=== PATIENT | female | born 1945 | race Caucasian/White ===

== ENCOUNTER 2019-04-15 09:30 | Inpatient (IN) ==
--- NOTE | 2019-03-24 09:19 | PAT Medication Instructions ---
Medication Instructions Date of Service March 24, 2019 Home Medications citalopram 20 mg PO HS lisinopril-hydrochlorothiazide 1 tab PO QAM lorazepam 0.5 mg PO DAILY PRN pantoprazole 40 mg PO QAM DO NOT take the morning of surgery lisinopril-hydrochlorothiazide 1 tab PO QAM Take morning of surgery With a small sip of water, OTHERWISE NOTHING TO EAT OR DRINK AFTER MIDNIGHT: lorazepam 0.5 mg PO DAILY PRN (if needed) pantoprazole 40 mg PO QAM Take evening before surgery citalopram 20 mg PO HS lorazepam 0.5 mg PO DAILY PRN (if needed) Other Notes If you have any questions please call us at [phone] or [phone] or [phone] or [phone]
--- NOTE | 2019-03-24 09:46 | Anesthesiology Consultation ---
Date of Service March 24, 2019 Assessment & Plan (1) Encounter for pre-operative examination: S/P CTR with nerve transposition 01/15/19 = LMA #4, no complications. Chart Review Chart Review: Acceptable Risk for Surgery and Patient seen in Pre Admission Testing Teaching & Discussion Instructed NPO after midnight before surgery, except medications with 15 cc of water. Medication instructions provided according to the PAT guidelines. History Surgery Operation Date: 04/15/19 10:40 Proposed Procedures p Right Total Knee Arthroplasty - Dany Melendez MD Height/Weight Height: 5 ft 1 in Weight: 68.4 kg Allergies Allergy/AdvReac Type Severity Reaction Status Date / Time No Known Allergies Allergy Verified 03/17/19 08:53 Medications Home Medications Medication Instructions Recorded Confirmed Last Taken citalopram 20 mg PO HS 01/10/19 03/17/19 01/14/19 lisinopril-hydrochlorothiazide 1 tab PO QAM 01/10/19 03/17/19 01/14/19 lorazepam 0.5 mg PO DAILY PRN 01/10/19 03/17/19 01/14/19 pantoprazole 40 mg PO QAM 01/10/19 03/17/19 01/14/19 Past Medical History Medical History Anxiety Cardiac murmur I/ on exam, pt asymptomatic Hearing deficit History of GI bleed CAUSED BY CHEMO. PT IS FAIRLY CERTAIN SHE HAD A BLOOD TRANSFUSION. Hx of breast cancer 2013 - HAD MASTECTOMY - CHEMO Hypertension Osteoarthritis Exercise / Class Metabolic Activity III < 4 Walking/Shop/Light housework (Limited by knee pain, "legs give out before my breath gives out," uses walker, no stairs, no SOB or CP with ambulation) Past Family History Family History Father Family history of diabetes mellitus Grandfather (Paternal) Family history of diabetes mellitus Past Surgical History Surgical History History of bilateral tubal ligation History of carpal tunnel surgery of right wrist History of section History of colonoscopy History of esophagogastroduodenoscopy (EGD) History of mastectomy LEFT History of tooth extraction History of vascular access device A-PORT INSERTION/REMOVAL Past Anesthesia History No Hx of Anesthesia Complications and No Family Hx of Anesthesia Complications History of PONV No Hx of PONV and No Hx of Motion Sickness Social History Smoking Status: Former smoker tobacco type: cigarettes Do You Dip or Chew Tobacco: No Smoking End Date: 35 YR AGO Hx Alcohol Use: Yes Alcohol type: hard liquor alcohol intake frequency: 0-2 drinks per day ("one big drink per day") Hx Substance Use: No substance use type: does not use Review of Systems Pt denies any recent chest pain, shortness of breath, palpitations, cough, fever or URI. +mild sinus congestion Physical Exam Vital Signs BP: 135/68 P: 74bpm SPO2: 94% RA T: 98.4 F R: 14 ENMT Mouth: + dental bridge (VERY LOOSE), + poor dentition and + loose teeth (UPPER R BRIDGE VERY LOOSE) Thyromental Distance: > or= 3.5 Finger Breadths (3.5) Mallampati Class: II Neck normal visual inspection; neck extension not limited Respiratory normal respiratory effort Auscultation: lungs clear to auscultation bilaterally Cardiovascular Rate/Rhythm: regular rate and regular rhythm Heart Sounds: + murmur (I/ systolic loudest at RSB) Vessels: no carotid bruit Extremities: no edema Testing Laboratory Results 03/24/19 10:00 03/24/19 10:08 PT 10.1 Seconds (9.0-12.0) 03/24/19 10:00 INR 1.0 (0.9-1.1) 03/24/19 10:00 APTT 31.3 Seconds (21.0-31.0) H 03/24/19 10:00 Blood Type O Positive 03/24/19 10:00 Antibody Screen NEGATIVE 03/24/19 10:00 Electrocardiogram Date: 01/09/19 Findings: + NSR @ (74) Possible anterior infarct, age undetermined. Nonspecific ST abnormality. *possible anterior infarct also noted on 2013 EKG from [facility], scanned to chart. Chest X-Ray Date: 03/24/19 Findings: + NAD
--- NOTE | 2019-03-24 10:34 | XRay Report ---
XR chest Pre-admission PA/Lat CLINICAL HISTORY: pat preoperative evaluation COMPARISON STUDY: No previous studies for comparison. FINDINGS: The bones soft tissues and hemidiaphragms are normal. The cardiomediastinal silhouette is n ormal. The lungs are clear. The pulmonary vasculature is normal. IMPRESSION: Negative chest. The above report was generated using voice recognition software. It may contain grammatical, syntax or spelling errors. Electronically signed by: Francis Parrish M.D. 03/24/2019 10:33 AM
[2019-03-24 10:52] LABS: Basophils # (auto) 0.03 K/uL (0-0.2); Basophils % (auto) 0.6 %; Eosinophils # (auto) 0.26 K/uL (0-0.5); Hematocrit (blood only) 36.8 % (37-47); Hemoglobin 12.1 g/dL (12.0-16.0); Immature Granulocytes # (auto) 0.02 K/uL (0.00-0.02); Immature Granulocytes % (auto) 0.4 %; Lymphocytes # (auto) 0.95 K/uL (1.2-3.4); Lymphocytes % (auto) 18.2 %; Mean Corpuscular Hemoglobin 30.9 pg (25-34); Mean Corpuscular Hgb Conc 32.9 g/dL (32-36); Mean Corpuscular Volume 93.9 fL (80-100); Mean Platelet Volume 9.9 fL (7.4-10.4); Monocytes % (auto) 13.4 %; Neutrophils # (auto) 3.25 K/uL (1.4-6.5); Neutrophils % (auto) 62.4 %; Platelet Count 280 K/uL (130-400); RDW Coefficient of Variation 14.8 % (11.5-14.5); Red Blood Count 3.92 M/uL (4.2-5.4); White Blood Count 5.21 K/uL (4.8-10.8)
[2019-03-24 10:56] LABS: BUN Creatinine Ratio 20.7 (10-20); Calcium 9.1 mg/dl (8.5-10.1); Creatinine Clr Calc Pharmacy 41.1 ml/min; Est GFR (African American) 61.2; Est GFR (Non-African American) 52.8; Potassium 4.4 mmol/L (3.5-5.1)
[2019-03-24 10:58] LABS: Partial Thromboplastin Ratio 1.2; Partial Thromboplastin Time 31.3 Seconds (21.0-31.0); Prothrombin Time 10.1 Seconds (9.0-12.0)
--- NOTE | 2019-04-12 10:44 | History and Physical Report ---
DATE OF ADMISSION: 04/15/2019 CHIEF COMPLAINT: Right knee pain. HISTORY OF PRESENT ILLNESS: The patient is a 74-year-old white female who presents for surgical treatment of her right knee. She has a long history of bilateral knee pain and discomfort, describes it has gotten worse over time. She has been through extensive conservative treatment. She has resorted to using a walker to get around. Both knees are pretty much about the same. The injections have not helped much recently. She now would like to proceed with knee replacement. PAST MEDICAL HISTORY: 1. Hypertension. 2. Arthritis. 3. Breast cancer. PAST SURGICAL HISTORY: 1. . 2. Tubal ligation. 3. Right carpal tunnel release and ulnar nerve transposition done on 01/09/2019. ALLERGIES: None. CURRENT MEDICINES: 1. Citalopram 20 mg. 2. Lisinopril 20 mg a day. 3. Protonix 40 mg a day. 4. Ativan p.r.n. 5. Tylenol. 6. Aleve. 7. Tylenol with Codeine. SOCIAL HISTORY: A 74-year-old female patient from [place]. She is . Three drinks per day. FAMILY HISTORY: Noncontributory. REVIEW OF HISTORY: Negative for diabetes, neurologic problem, vascular problems or other bleeding disorders. Denies any chest pain or shortness of breath. No history of DVT or PE. PHYSICAL EXAMINATION: GENERAL: Reveals a healthy, pleasant middle-aged female. Looks to be in pretty good health. HEENT: Benign. NECK: Supple, no lymphadenopathy. LUNGS: Clear to auscultation. HEART: Regular rate and rhythm. ABDOMEN: Soft, nontender, nondistended. EXTREMITIES: Grossly neurovascularly intact except as follows: Examination of the right knee reveals the patient uses a walker to ambulate. She has got varus alignment to her knee. She is tender over the medial joint line. Small knee effusion. Range of motion is 5-120. No instability. No pain with hip motion. X-RAYS: X-ray of the right knee reveals advanced right knee DJD. She has got complete loss of medial joint space. She has got subchondral sclerosis. She has got osteophytes particularly of the medial femoral condyle and medial tibial plateau. She has similar findings on her left side. ASSESSMENT: A 74-year-old white female status post relatively recent upper extremity surgery with bilateral knee pain and degenerative joint disease. She now would like to proceed with right knee replacement. PLAN: We will take her to the operating room and do a right total knee replacement. The risks and benefits of this procedure were explained to the patient including but not limited to DVT, PE, , infection, neurological injury, vascular injury, bleeding problem, pain, limited range of motion, stiffness, failure to relieve symptoms, incomplete relief of symptoms, need for further surgery in the future, fracture, leg length inequality, nerve palsy, etc. The patient understands and desires to proceed. Informed consent was obtained. We did talk about holding her lisinopril on the morning of surgery. She is planning to be discharged home using [facility] home health program.
[~2019-04-15 09:30] MED LIST: ACETAMINOPHEN 500 MG TAB PO SCH; BUPIVACAINE 0.5 % 5 MG/1 ML PF 10ML VIAL ONE; BUPIVACAINE LIPOSOME/PF 266 MG, BUPIVACAINE/EPINEPHRINE 50 ML, SODIUM CHLORIDE 0.9% 30 ... INFIL SCH; CEFAZOLIN 2000MG 2,000 MG/15 ML SYR IV SCH; FAMOTIDINE 20 MG TAB PO SCH; GABAPENTIN 300 MG CAP PO SCH; LR 500ML BOLUS, THEN 15ML/HR IV SCH; LR 60ML/HR IV SCH; METOCLOPRAMIDE HCL 10 MG TABLET PO SCH; ROPIVACAINE 0.5% 5 MG/ML 30 ML VIAL ONE; TRANEXAMIC ACID 1,000 MG **IV Intra-op IV SCH
[2019-04-15] MEDS ORDERED: MIDAZOLAM HCL 1 MG/ML 2ML VIAL ONE (10:26)
[2019-04-15] MEDS ORDERED: fentaNYL citrate 100 MCG/2 ML VIAL ONE (10:26)
--- NOTE | 2019-04-15 10:54 | History & Physical Bridge Note ---
Date of Service April 15, 2019 History & Physical Bridge Note I have examined the patient, reviewed the History & Physical and in the interval since the performance of the History & Physical I have noted the following changes of clinical significance: no changes noted
[2019-04-15] MEDS ORDERED: SODIUM CHLORIDE 0.9% PF 50 ML VIAL ONE (11:20)
[2019-04-15] MEDS ORDERED: BUPIVACAINE LIPOSOME 1.3% 266 MG/20 ML VIAL ONE (11:20)
[2019-04-15] MEDS ORDERED: BACITRACIN INJ 50,000 UNIT VIAL ONE (11:20)
[2019-04-15] MEDS ORDERED: BUPIVACAINE 0.25% 30 ML VIAL ONE (11:23)
[2019-04-15] MEDS ORDERED: EPINEPHrine INJ 1 MG/ML AMP ONE (11:23)
[2019-04-15] MEDS ORDERED: ePHEDrine sulfate 50 MG/ML AMP IV PRN (11:53)
[2019-04-15] MEDS ORDERED: ATROPINE SULFATE 0.1 MG/ML 10ML SYR IV PRN (11:53)
[2019-04-15] MEDS ORDERED: PROPOFOL IV EMULSION 10 MG/ML 20 ML VIAL IV ONE (12:59)
[2019-04-15] MEDS ORDERED: KETAMINE HCL INJ 50 MG/ML 10 ML VIAL ONE (13:06)
[2019-04-15] MEDS ORDERED: BUPIVACAINE 0.25% 30 ML VIAL INFIL ONE (13:20)
[2019-04-15] MEDS ORDERED: EPINEPHrine INJ 1 MG/ML AMP INJ STA (13:22)
--- NOTE | 2019-04-15 14:13 | Post Operative Brief Note ---
PG Immediate Post Op with CF Date of Surgery April 15, 2019 Pre & Post Diagnosis Operation Date: 04/15/19 12:30 Pre-Op Diagnosis: Right Knee Advanced Degenerative Joint Disease Post-Op Diagnosis: Right Knee Advanced Degenerative Joint Disease Procedure Operation Date: 04/15/19 12:30 Actual Procedures p Right Total Knee Arthroplasty(Right) - Dany Melendez MD Surgeon Dany Melendez MD Gasoline Attendant Noa, PAC Estimated Blood Loss 50 Findings Consistent with Post-Op Diagnosis Fluids 1400 cc Specimens Specimen Description: A. Right Knee Bone and Tissue Drains Thibodeaux Catheter (A 16 [place] thibodeaux catheter was inserted by Denisha Ramirez RN, without difficulty, clear yellow urine obtained, output to be monitored by Anesthesia.) Anesthesia Type Spinal MAC Complications none Disposition Accompanied Patient To Recovery: No Disposition: Recovery Room
--- NOTE | 2019-04-15 14:48 | XRay Report ---
RIGHT KNEE 2 VIEWS History: Right total knee arthroplasty. Degenerative arthritis. Postop. FINDINGS: The patient is status post a right total knee arthroplasty. The hardware is intact. No frac ture or dislocation. Skin monty are in place. IMPRESSION: Right total knee arthroplasty. No evidence for hardware complication. Electronically signed by: Bhaskar Sanchez M.D. 04/15/2019 2:46 PM
--- NOTE | 2019-04-15 15:14 | Anesthesiology Progress Note ---
Date of Service April 15, 2019 Anesthesia Post Procedure Vital Signs Vital Signs: Temp Pulse Pulse Resp BP Pulse Ox 04/15/19 15:05 86 14 103/58 L 97 04/15/19 14:55 36.9 C 87 16 127/64 98 04/15/19 14:45 95 H 16 124/76 94 04/15/19 14:35 89 16 116/68 99 04/15/19 14:25 89 16 99/59 L 100 04/15/19 14:15 36.5 C 90 14 116/65 98 04/15/19 10:22 36.9 C 89 20 163/99 H 94 Transfer of Care Handoff Completed per policy Notes Mental Status: alert / awake / arousable and participated in evaluation Patient Amnestic to Procedure: Yes Nausea / Vomiting: adequately controlled Pain: adequately controlled Airway Patency, RR, SpO2: stable & adequate BP & HR: stable & adequate Hydration State: stable & adequate Neuraxial Anesthesia: was administered and sensory block is resolving Anesthetic Complications: no major complications apparent
[2019-04-15] MEDS ORDERED: SODIUM CHLORIDE 0.9% 1000ML 1,000 ML IV SCH (15:37)
[2019-04-15] MEDS ORDERED: METOCLOPRAMIDE HCL INJ 5 MG/ML 2 ML VIAL IV PRN (15:37)
[2019-04-15] MEDS ORDERED: FLUTICASONE PROPIONATE NA SPR 16 GM BTL PRN (15:37)
[2019-04-15] MEDS ORDERED: MAGNESIUM HYDROXIDE SUSP 30 ML UDC PO PRN (15:37)
[2019-04-15] MEDS ORDERED: HYDROmorphone INJ 0.5 MG/0.5 ML SYR IV PRN (15:37)
[2019-04-15] MEDS ORDERED: TRAMADOL HCL 50 MG TABLET PO PRN (15:37)
[2019-04-15] MEDS ORDERED: ALUMINUM/MAGNESIUM SUSP 30 ML UDC PO PRN (15:37)
[2019-04-15] MEDS ORDERED: NALOXONE HCL 0.4 MG/1 ML VIAL/CARP IV PRN (15:37)
[2019-04-15] MEDS ORDERED: ONDANSETRON INJ 2 MG/ML 2 ML VIAL IV PRN (15:37)
[2019-04-15] MEDS ORDERED: BISACODYL 10 MG SUPP PR PRN (15:37)
[2019-04-15] MEDS ORDERED: LORazepam 0.5 MG TAB PO PRN (15:37)
[2019-04-15] MEDS: KETOROLAC TROMETHAMINE 15 MG/ML VIAL IV SCH ×2 (16:22→21:09)
[2019-04-15] MEDS: ASCORBIC ACID 500 MG TAB PO SCH (16:23)
[2019-04-15] MEDS: FERROUS GLUCONATE 324 MG TAB PO SCH (16:23)
[2019-04-15] MEDS: CEFAZOLIN 1000MG 1,000 MG/7.5 ML SYR IV SCH (17:58)
[2019-04-15] MEDS ORDERED: TRANEXAMIC ACID 1,000 MG in 0.9 % SODIUM CHLORIDE 100 ML IV SCH (20:16)
[2019-04-15] MEDS: DOCUSATE SODIUM 100 MG CAP PO SCH (20:37)
[2019-04-15] MEDS: CITALOPRAM 20 MG TAB PO SCH (20:37)
[2019-04-15] MEDS: ASPIRIN 81 MG ECTAB PO SCH (20:37)
[2019-04-15] MEDS: SENNA 8.6 MG TAB PO SCH (20:37)
--- NOTE | 2019-04-15 21:06 | Progress Note ---
DATE: 04/15/2019 SUBJECTIVE: A 74-year-old white female postop from a right knee replacement. She is doing well. Does not have any pain yet. No chest pain or shortness of breath. Not feeling dizzy or lightheaded. OBJECTIVE: VITAL SIGNS: Temperature 36.6. Vital signs stable. GENERAL: Shows a pleasant, middle-aged female. She is sitting up in her bed, looks pretty comfortable. LUNGS: Clear to auscultation. HEART: Has a regular rate and rhythm. ABDOMEN: Soft, nontender, nondistended. EXTREMITIES: Grossly neurovascularly intact except as follows: Examination of the right lower extremity reveals the leg to be well aligned. Dressing is clean, dry and intact. She can dorsiflex and plantarflex her foot appropriately. NEUROLOGIC: She is neurologically intact. X-RAYS: X-ray of the right knee from recovery room is reviewed. It shows right cemented posterior stabilized total knee arthroplasty. Components looked to be in good position. No signs of problems. ASSESSMENT: A 74-year-old white female postoperative from a right knee replacement, doing well. Pain is controlled. She is neurologically intact. PLAN: 1. DVT prophylaxis including thigh-high TEDs, SCDs, and aspirin twice a day. 2. PT/OT. Weight bear as tolerated. Right total knee protocol. 3. Pain control, doing well with current pain regimen. 4. IV antibiotics x24 hours. 5. Disposition: Plan to discharge to home with some home health once adequately recovered and medically stable.
[2019-04-15] MEDS: ACETAMINOPHEN 500 MG TAB PO SCH (21:09)
--- NOTE | 2019-04-15 23:06 | Operative Report ---
DATE OF OPERATION: 04/15/2019 SURGEON: Dany Melendez MD [employer]ARDEN: TAMARA Barber PREOPERATIVE DIAGNOSIS: Right knee degenerative joint disease. POSTOPERATIVE DIAGNOSIS: Right knee degenerative joint disease. PROCEDURE PERFORMED: Right cemented posterior stabilized total knee arthroplasty. COMPLICATIONS: None. ESTIMATED BLOOD LOSS: 50 mL. FLUID REPLACEMENT: 1400 mL crystalloid fluid replacement. TOURNIQUET TIME: 52 minutes at 300 mmHg. ANESTHESIA: Spinal with adductor canal block. DRAINS: None. SPECIMENS: Right knee sent for pathology. OPERATIVE INDICATIONS: The patient is a 74-year-old fairly active female who has had a long history of bilateral knee pain and discomfort, right side a bit worse than the left. She has been through extensive conservative treatment over the years, which became less successful over time. She elected to proceed with total knee arthroplasty. OPERATIVE FINDINGS: Operative findings revealed extensive grade 4 [id number] disease and eburnation of the entire medial femoral condyle and medial tibial plateau. She had varus deformity to her knee and about 10-degree flexion contracture and a large knee joint effusion. She had osteophytes mostly in the medial compartment. OPERATIVE IMPLANTS: Operative implants consisted of: 1. A Biomet Vanguard size 60 right posterior stabilized femoral component. 2. A Biomet size 67 tibial tray. 3. A 12 mm posterior stabilized polyethylene insert. 4. A 28 x 8 all poly patella. OPERATIVE PROCEDURE: The patient was taken to the operating room, identified and placed on the operating table in supine position. All contact areas were appropriately padded. IV antibiotics were provided by the anesthesia team. A spinal anesthetic and adductor canal block had been provided in the holding area. Siddiqui catheter was placed in sterile fashion. A right thigh tourniquet was then placed and the right lower extremity was then prepped and draped in the usual sterile fashion. The right leg was elevated and exsanguinated with an Esmarch and tourniquet was placed at 300 mmHg. An anterior approach to the right knee was then performed through a longitudinal incision centered over the patella. Sharp dissection was carried out through the subcutaneous tissue down to the level of the extensor mechanism. Medial parapatellar arthrotomy incision was made. Some subperiosteal dissection was carried out medially. The fat pad resected from beneath the patellar tendon. The lateral patellofemoral ligament was released. The patella was everted and the knee was flexed. The osteophytes were taken off the distal femur. The ACL and PCL were then released from the distal femur and the tibia subluxated anteriorly. External tibial alignment jig was then placed in the anterior face of the tibia and adjusted 14 mm medially. Proximal tibial cut was made to remove about a millimeter of bone from most deficient aspect of the medial tibial plateau. Some osteophytes were taken off medial and posteromedially. Tibia sized to a size 67. Attention was then drawn to the femur. The distal femur was entered with a sharp drill. Intramedullary guide was placed. Distal femoral cutting block was pinned in place and the distal femoral cut was then made to take an additional 3 mm of bone off the distal femur. This was placed with 5-degree valgus cutting guide. The femur was then sized to a size 60. We did downsize this slightly. The AP cutting block was pinned parallel to the epicondylar axis, which was 5 degrees of external rotation. The anterior cut, anterior chamfer, posterior cut, posterior chamfer cuts were made. Box cutting guide was placed and adjusted slightly lateral and the box cut was made. The knee was flexed. The remnants of the medial and lateral menisci were excised. The osteophytes were taken off the posterior aspect of the femur. A trial femoral component was placed. The tibial tray was pinned in maximum external rotation and drill and stem punch were used to create defect in proximal tibia for the tibial tray. The knee was then trialed and the 12 mm insert fit most appropriately. Attention was then drawn to the patella. The patella was cleaned of all soft tissues. Patella thickness measured 22 mm in thickness, it was cut down to 13. It was sized to a size 28 patella. Lug holes were drilled for a 28 patella. The lateral osteophyte was removed. Patella button was placed. Knee was taken through range of motion, patella tracked nicely with no thumbs test. Attention was then drawn toward placement of permanent components. All trial components were removed. Bone plug was placed in the distal femur to limit blood loss. A double batch of Palacos G cement was mixed. A Biomet Light Up [place]aguard size 60 right posterior stabilized femoral component, size 67 tibial tray, 12 mm posterior stabilized polyethylene insert, 28 x 8 all poly patella then cemented in place. Knee was brought down to full extension until cement hardened. A final cement check was then performed. Pericapsular tissues were injected with a total of 100 mL of combination of 20 mL of Exparel, 30 mL of normal saline, 50 mL of 0.25% Marcaine with epinephrine. The patient did receive 1 gram of tranexamic acid. The tourniquet was then let down for final tourniquet time of 52 minutes. Hemostasis was assured with use of electrocautery. The extensor mechanism was then closed with combination of #1 PDS suture and #1 Vicryl suture in [id number] fashion. Extensor mechanism was checked and found to be intact. Subcutaneous tissue was then closed with #2 Dexon suture in a buried interrupted fashion. Skin was closed with skin monty. Leg was then cleaned and dried and a sterile dressing with Xeroform, 4 x 4, sterile cast padding and Chris bandage were applied. The patient then transferred to the recovery room in stable condition. The patient tolerated the procedure well with no complications. All needle and sponge counts were correct at the end of the operation. I attest to the content of the Intraoperative Record and any orders documented therein. Any exceptions are noted below. JADIELD
[2019-04-16] MEDS: CEFAZOLIN 1000MG 1,000 MG/7.5 ML SYR IV SCH (02:19)
[2019-04-16] MEDS: KETOROLAC TROMETHAMINE 15 MG/ML VIAL IV SCH ×4 (03:45→22:05)
[2019-04-16] MEDS: ACETAMINOPHEN 500 MG TAB PO SCH ×3 (05:54→22:08)
[2019-04-16 06:26] LABS: Hematocrit (blood only) 30.9 % (37-47); Hemoglobin 10.3 g/dL (12.0-16.0); Mean Corpuscular Hemoglobin 30.7 pg (25-34); Mean Corpuscular Hgb Conc 33.3 g/dL (32-36); Mean Platelet Volume 9.5 fL (7.4-10.4); Platelet Count 215 K/uL (130-400); RDW Coefficient of Variation 14.8 % (11.5-14.5); RDW Standard Deviation 49.9 fL (36.4-46.3); Red Blood Count 3.36 M/uL (4.2-5.4)
[2019-04-16 07:04] LABS: BUN Creatinine Ratio 15.4 (10-20); Calcium 8.2 mg/dl (8.5-10.1); Creatinine Clr Calc Pharmacy 42.7 ml/min; Est GFR (African American) 63.4; Est GFR (Non-African American) 54.7; Potassium 4.2 mmol/L (3.5-5.1)
[2019-04-16] MEDS: PANTOprazole 40 MG TAB PO SCH (08:21)
[2019-04-16] MEDS: MULTIVITAMIN TAB PO SCH (08:21)
[2019-04-16] MEDS: LISINOPRIL/HCTZ 20/25MG 1 TAB PO SCH (08:21)
[2019-04-16] MEDS: ASCORBIC ACID 500 MG TAB PO SCH ×2 (08:22→16:04)
[2019-04-16] MEDS: FERROUS GLUCONATE 324 MG TAB PO SCH ×2 (08:22→16:04)
[2019-04-16] MEDS: DOCUSATE SODIUM 100 MG CAP PO SCH ×2 (08:22→20:00)
[2019-04-16] MEDS: ASPIRIN 81 MG ECTAB PO SCH ×2 (08:22→22:08)
--- NOTE | 2019-04-16 08:26 | Anesthesiology Progress Note ---
Date of Service April 16, 2019 Anesthesia Post Procedure Vital Signs Vital Signs: Temp Pulse Pulse Resp BP Pulse Ox 04/16/19 08:20 36.7 C 86 16 156/86 H 93 04/16/19 04:23 36.7 C 88 18 164/91 H 92 04/15/19 23:45 36.6 C 89 18 133/82 92 04/15/19 18:30 36.6 C 94 H 18 123/78 92 04/15/19 17:30 36.6 C 101 H 16 117/71 92 04/15/19 16:28 36.4 C L 89 18 152/89 H 94 04/15/19 15:58 37 C 92 H 18 131/74 90 04/15/19 15:30 36.8 C 92 H 16 123/69 92 04/15/19 15:15 87 14 111/64 97 04/15/19 15:05 86 14 103/58 L 97 04/15/19 14:55 36.9 C 87 16 127/64 98 04/15/19 14:45 95 H 16 124/76 94 04/15/19 14:35 89 16 116/68 99 04/15/19 14:25 89 16 99/59 L 100 04/15/19 14:15 36.5 C 90 14 116/65 98 04/15/19 10:22 36.9 C 89 20 163/99 H 94 Notes Mental Status: alert / awake / arousable and participated in evaluation Patient Amnestic to Procedure: Yes Nausea / Vomiting: adequately controlled Pain: adequately controlled Airway Patency, RR, SpO2: stable & adequate BP & HR: stable & adequate Hydration State: stable & adequate Neuraxial Anesthesia: was administered and sensory block resolved Anesthetic Complications: no major complications apparent and Pt Satisfied with anesthetic care
--- NOTE | 2019-04-16 08:50 | Progress Note ---
DATE: 04/16/2019 SUBJECTIVE: A 74-year-old white female postop day 1 from right knee replacement. She is doing well. Does not report any significant pain. No chest pain or shortness of breath. Not feeling dizzy or lightheaded. OBJECTIVE: VITAL SIGNS: Temperature 36.7. Vital signs stable. GENERAL: Physical examination shows a pleasant elderly female. She is sitting up in her bedside chair and just starting to eat breakfast. EXTREMITIES: Examination of the right leg reveals the dressing to be intact. Has been reenforced. No visible drainage. She can dorsiflex and plantarflex her foot appropriately. She is neurologically intact. LABORATORY DATA: Hemoglobin 10.3. Hematocrit 30.9. Electrolytes are stable. ASSESSMENT: A 74-year-old white female postop day 1 from right knee replacement, doing pretty well. Her pain is controlled. She is slightly anemic, but without symptoms. PLAN: 1. DVT prophylaxis including thigh-high TEDs, SCDs, and aspirin twice a day. 2. PT/OT. Weight bear as tolerated. Right total knee protocol. 3. Pain control, doing well with current pain regimen. 4. Anemia. Currently, asymptomatic. We will continue iron supplementation. 5. Disposition: Plan to discharge to home with some home health once adequately recovered and medically stable.
[2019-04-16] MEDS: SENNA 8.6 MG TAB PO SCH (20:00)
[2019-04-16] MEDS: CITALOPRAM 20 MG TAB PO SCH (22:09)
[2019-04-17] MEDS: KETOROLAC TROMETHAMINE 15 MG/ML VIAL IV SCH ×2 (05:13→10:39)
[2019-04-17] MEDS: ACETAMINOPHEN 500 MG TAB PO SCH (05:14)
[2019-04-17 08:00] VITALS: BP 151/75; PULSE 83; TEMP 97.7; O2SAT 98
[2019-04-17] MEDS: ASPIRIN 81 MG ECTAB PO SCH (08:01)
[2019-04-17] MEDS: MULTIVITAMIN TAB PO SCH (08:01)
[2019-04-17] MEDS: ASCORBIC ACID 500 MG TAB PO SCH (08:01)
[2019-04-17] MEDS: PANTOprazole 40 MG TAB PO SCH (08:01)
[2019-04-17] MEDS: LISINOPRIL/HCTZ 20/25MG 1 TAB PO SCH (08:01)
[2019-04-17] MEDS: FERROUS GLUCONATE 324 MG TAB PO SCH (08:02)
[2019-04-17] MEDS: DOCUSATE SODIUM 100 MG CAP PO SCH (08:02)
--- NOTE | 2019-04-17 08:54 | Progress Note ---
DATE: 04/17/2019 SUBJECTIVE: A 74-year-old white female postop day 2 from right knee replacement. She is doing pretty well. Had quite a bit of nausea yesterday, which has resolved this morning. Her pain is controlled. No chest pain or shortness of breath. Not feeling dizzy or lightheaded. OBJECTIVE: VITAL SIGNS: Temperature 36.7. Vital signs stable. GENERAL: Physical examination shows a pleasant, middle-aged female. She is lying in bed, looks quite comfortable. EXTREMITIES: Examination of the right leg reveals the leg to be well aligned. Dressing is clean, dry and intact. Her calf is soft and supple. She is neurologically intact. ASSESSMENT: A 74-year-old white female postop day 2 from right knee replacement, doing pretty well. Pain is controlled. She is neurologically intact. She is slightly anemic, but asymptomatic. PLAN: 1. DVT prophylaxis including thigh-high TEDs, SCDs, and aspirin twice a day. 2. PT/OT. Weight bear as tolerated. Right total knee protocol. 3. Pain control, doing well with current pain regimen. 4. Mild anemia. She is on iron supplementation. She is asymptomatic. 5. Disposition: Plan to discharge to home with some home health later today.
--- NOTE | 2019-04-23 13:00 | Discharge Summary ---
ADMITTING PHYSICIAN AND SURGEON: Dr. Dany Melendez. ADMITTING DIAGNOSIS: Right knee degenerative joint disease. SURGERY PERFORMED: Right total knee arthroplasty. SECONDARY DIAGNOSES: Hypertension, arthritis, breast cancer. CONSULTS: None obtained. HISTORY AND PHYSICAL EXAMINATION: Well documented in the patient's chart. HOSPITAL COURSE: The patient was admitted on 04/15/2019 underwent total knee arthroplasty, tolerated the procedure well. There were no complications. She was transferred to the PACU postoperatively and later to the orthopedic floor for further care. She was given Ancef for antibiotic prophylaxis, CAITLIN stockings, SCDs and aspirin for DVT prophylaxis. Hemoglobin, hematocrit and vital signs were monitored during her hospital stay and remained stable. She developed some mild postoperative anemia. She received an iron supplement, did not require any blood transfusions. There were no complications. On postoperative day 2, she was tolerating a regular diet, pain was controlled with oral pain medicine. She was participating in physical therapy. Postop day 2, she was discharged home, set up with home health services. She was given printed discharge instructions as well as new prescriptions for extra strength Tylenol, aspirin, iron supplement, Zofran and tramadol. Continue her home medicines. Continue physical therapy, weightbearing as tolerated, CAITLIN stockings. Follow up approximately 2 weeks postop or sooner if there are any problems or concerns.
== END 2019-04-17 10:58 | disposition home health service (06) | DRG 470 ==
LOC: ASU 09:30 → 3E 14:18